=== PATIENT | female | born 1970 | race African-American/Black ===

== ENCOUNTER 2022-06-27 19:06 | Emergency (ER) | payer MEDICAID ==
[~2022-06-27] VITALS: Ht 177.8 cm; Wt 97.3 kg
[~2022-06-27 19:06] MED LIST: ALBU6.7H9 INH; ASPI-1497 PO; CALC-1249 PO; CYAN-50 PO; HYDR-4009 MT; HYDR50TA PO; LEVO500T90 MT; LOSA25TA26 MT; MULT-1146 MT; PREG100C MT; SERT-422 PO
[2022-06-27 20:00] VITALS: BP 158/98
[2022-06-27] MEDS ORDERED: ACETAMINOPHEN 325MG TABLET PO NR (21:45)
[2022-06-27 22:05] LABS: CLARITY URINE TURBID (CLEAR); COLOR URINE DARK YELLOW (YELLOW); KETONES URINE TRACE (NEGATIVE); LEUKOCYTE ESTERASE URINE NEGATIVE (NEGATIVE); NITRITE URINE NEGATIVE (NEGATIVE); OCCULT BLOOD URINE NEGATIVE (NEGATIVE); PROTEIN URINE NEGATIVE (NEGATIVE); SPECIFIC GRAVITY URINE 1.029 (1.005-1.030)
[2022-06-27] MEDS ORDERED: CEPH500T MT ×2 (22:43→22:44)
[2022-06-27] MEDS ORDERED: ACET-2708 MT (22:43)
[2022-06-27] MEDS ORDERED: TOPUD MT (22:44)
[2022-06-27] MEDS ORDERED: CEPHALEXIN 250MG CAPSULE PO NR (22:45)
== END 2022-06-27 22:59 | disposition home or self-care (01) ==
LOC: ER 19:06
DX: R82.71 Bacteriuria (principal); I10 Essential (primary) hypertension; M79.7 Fibromyalgia; J45.909 Unspecified asthma, uncomplicated; G43.909 Migraine, unspecified, not intractable, without status migrainosus; Z90.710 Acquired absence of both cervix and uterus; Z98.84 Bariatric surgery status; Z98.1 Arthrodesis status; Z96.649 Presence of unspecified artificial hip joint; Z79.82 Long term (current) use of aspirin; Z88.8 Allergy status to other drugs, medicaments and biological substances; Z91.018 Allergy to other foods
CPT/HCPCS: 81003; 81025; 99283

== ENCOUNTER 2022-07-08 12:31 | Emergency (ER) | payer MEDICAID, MEDICARE, OTHER ==
[~2022-07-08] VITALS: Ht 175.3 cm; Wt 97.0 kg
[~2022-07-08 12:31] MED LIST changes: +ACET-2708 MT; +CEPH500T MT; +TOPUD MT
[2022-07-08 12:35] VITALS: BP 144/84
== END 2022-07-08 18:49 | disposition left against medical advice (07) ==
LOC: ER 12:31
DX: Z53.21 Procedure and treatment not carried out due to patient leaving prior to being seen by health care provider (principal)

== ENCOUNTER 2023-06-09 13:13 | Emergency (ER) | payer BC, OTHER ==
[~2023-06-09] VITALS: Ht 175.3 cm; Wt 90.0 kg
[~2023-06-09 13:13] MED LIST changes: +ALBU6.7H3 INH; -ALBU6.7H9 INH; +LEVO-65 MT; -LEVO500T90 MT
[2023-06-09 13:25] VITALS: O2SAT 99
[2023-06-09 16:57] LABS: BASOPHILS % 0.4 % (0.0-2.0); EOSINOPHILS % 0.7 % (0.0-5.0); HEMATOCRIT. 36.8 % (36.0-48.0); HEMOGLOBIN. 11.7 g/dL (12.0-16.0); LYMPHOCYTES % 54.9 % (20.0-50.0); MEAN CORPUSCULAR HEMOGLOBIN 26.5 pg (28.0-32.0); MEAN CORPUSCULAR HGB CONC 31.7 g/dL (31.0-37.0); MEAN CORPUSCULAR VOLUME 83.6 fL (81.0-99.0); MEAN PLATELET VOLUME 8.3 fl (7.4-10.4); MONOCYTES % 8.6 % (2.0-8.0); NEUTROPHILS % 35.4 % (40.0-76.0); PLATELET 342 x1000/uL (130-400); RED CELL DISTRIBUTION WIDTH 15.4 % (11.6-14.6); WHITE BLOOD COUNT 6.1 x1000/uL (4.5-11.0)
[2023-06-09 17:24] LABS: CHLORIDE 108 mEq/L (98-107); INDEX HEMOLYSI 1 (1-3); INDEX ICTERIC 1 (1-4); INDEX LIPEMIC 1 (1-3); POTASSIUM 4.1 mEq/L (3.5-5.1); SODIUM 140 mEq/L (136-145)
[2023-06-09 17:33] LABS: ALANINE AMINOTRANSFERASE 20 IU/L (13-61); ASPARTATE AMINOTRANSFERASE 19 IU/L (15-37); BILIRUBIN TOTAL 0.2 mg/dL (0.1-1.0); CALCIUM 9.4 mg/dL (8.5-10.1); CARBON DIOXIDE 26 mEq/L (21-32); CREATINE KINASE 81 IU/L (26-192); CREATININE 0.7 mg/dL (0.6-1.3); GLUCOSE 92 mg/dL (70-105); PROTEIN TOTAL 7.9 g/dL (6.0-8.3); UREA NITROGEN BLOOD 14 mg/dL (7-21)
[2023-06-09] MEDS ORDERED: NAPR-1176 MT (17:43)
[2023-06-09] MEDS ORDERED: CYCL10TA21 MT (17:43)
[2023-06-09 19:46] VITALS: BP 134/89; PULSE 85; RESP 18; TEMP 98
== END 2023-06-09 19:49 | disposition home or self-care (01) ==
LOC: ER 13:13
DX: M79.672 Pain in left foot (principal); R25.2 Cramp and spasm; J45.909 Unspecified asthma, uncomplicated; M19.90 Unspecified osteoarthritis, unspecified site; I10 Essential (primary) hypertension; G43.909 Migraine, unspecified, not intractable, without status migrainosus; Z98.890 Other specified postprocedural states; Z90.49 Acquired absence of other specified parts of digestive tract
CPT/HCPCS: 36415; 80053; 82550; 85025; 93971; 99284